=== PATIENT | female | born 1990 | race Caucasian/White ===

== ENCOUNTER 2018-06-20 10:45 | Emergency (ER) | payer BC ==
[2018-06-20 11:59] VITALS: BP 126/61
--- NOTE | 2018-06-20 12:11 | UC ---
Knee Pain HPI - HPI Summary HPI Summary: right knee pain x 3 days injury to right knee as she was sliding to the base heard a loud pop + pain and swelling, difficulty walking - History of Current Complaint Chief Complaint: UCTrauma Stated Complaint: RIGHT KNEE COMPLAINT Time Seen by Provider: 06/20/18 12:00 Hx Obtained From: Patient Hx Last Menstrual Period: PCOS, no menses - followed OBGYN ?: No Onset/Duration: Sudden Onset, Lasting Days - 3, Still Present Severity Initially: Severe Severity Currently: Moderate Pain Intensity: 0 Character: Aching Aggravating Factor(s): Movement, Weight Bearing Alleviating Factor(s): Nothing Associated Signs And Symptoms: Positive: Swelling, Weakness. Negative: Redness , Bruising, Fever, Numbness, Tingling Able to Bear Weight: Yes - Allergies/Home Medications Allergies/Adverse Reactions: Allergies Allergy/AdvReac Type Severity Reaction Status Date / Time No Known Allergies Allergy Verified 06/20/18 11:59 Home Medications: Home Medications NK [No Home Medications Reported] 06/20/18 [History Confirmed 06/20/18] PMH/Surg Hx/FS Hx/Imm Hx Previously Healthy: Yes - Surgical History Surgical History: Yes Surgery Procedure, Year, and Place: bladder sling - Family History Known Family History: Negative: Diabetes - Social History Alcohol Use: Occasionally Substance Use Type: None Smoking Status (MU): Never Smoked Tobacco Review of Systems Constitutional: Negative Skin: Negative Eyes: Negative ENT: Negative Respiratory: Negative Cardiovascular: Negative Is Patient Immunocompromised?: No All Other Systems Reviewed And Are Negative: Yes Physical Exam Triage Information Reviewed: Yes Appearance: Well-Appearing, No Pain Distress, Well-Nourished Vital Signs: Initial Vital Signs Temp 97.6 F 06/20/18 11:54 Pulse 75 06/20/18 11:54 Resp 18 06/20/18 11:54 BP 126/61 06/20/18 11:54 Pulse Ox 100 06/20/18 11:54 Vital Signs Reviewed: Yes Eye Exam: Normal Eyes: Positive: Conjunctiva Clear ENT: Positive: Normal ENT inspection, Hearing grossly normal, Pharynx normal, Pharyngeal erythema Neck exam: Normal Neck: Positive: Supple, Nontender, No Lymphadenopathy Respiratory: Positive: Chest non-tender, Lungs clear, Normal breath sounds Cardiovascular: Positive: RRR, No Murmur, Pulses Normal Musculoskeletal: Positive: Other: - right knee: + swelling, + effusion , diffuse tenderness . limited ROM on flexion and extension Diagnostics - Laboratory Diagnostic Studies Completed/Ordered: right knee xray : IMPRESSION: LARGE EFFUSION. NO ACUTE OSSEOUS INJURY. IF SYMPTOMS PERSIST, RECOMMEND REPEAT IMAGING. Knee Pain Course/Dx - Differential Dx/Diagnosis Differential Diagnosis/HQI/PQRI: Internal Derangement Of Knee Provider Diagnoses: right knee pain. right knee effusion Discharge - Sign-Out/Discharge Documenting (check all that apply): Patient Departure All imaging exams completed and their final reports reviewed: Yes - Discharge Plan Condition: Stable Disposition: HOME Patient Education Materials: Swollen Knee Joint (ED) Referrals: Kathrine Key NP [Primary Care Provider] - Alex Nicholas MD [Medical Doctor] - As Soon As Possible - Billing Disposition and Condition Condition: STABLE Disposition: Home
--- NOTE | 2018-06-20 12:34 | RAD ---
HISTORY: right knee injury COMPARISONS: None VIEWS: 4 , Frontal, lateral, axial, and oblique views of the right knee FINDINGS: BONE DENSITY: Normal. BONES: There is no displaced fracture. JOINTS: There is no arthropathy. There is a large suprapatellar joint effusion without lipohemarthrosis. ALIGNMENT: There is no dislocation. SOFT TISSUES: Unremarkable. OTHER FINDINGS: None. IMPRESSION: LARGE EFFUSION. NO ACUTE OSSEOUS INJURY. IF SYMPTOMS PERSIST, RECOMMEND REPEAT IMAGING.
== END 2018-06-20 12:43 | disposition home or self-care (01) ==
LOC: UCCORT 10:45
DX: M25.561 Pain in right knee (principal); M25.461 Effusion, right knee
CPT/HCPCS: 99201; G0463

== ENCOUNTER 2018-08-07 06:15 | Day surgery (SDC) | payer BC ==
--- NOTE | 2018-08-04 19:10 | HP ---
PREOPERATIVE HISTORY AND PHYSICAL: DATE OF ADMISSION/SURGERY: 08/07/18 [facility] ATTENDING SURGEON: Dr. Joann Baker.* (DICTATED BY NANCY CASON) PROCEDURE: Right knee arthroscopy, anterior cruciate ligament reconstruction with possible allograft. CHIEF COMPLAINT: Right knee. HISTORY OF PRESENT ILLNESS: Page is a 28-year-old female, who presents to the clinic for followup of right knee pain and instability due to an ACL injury. She has failed conservative measures and agreed to undergo right knee arthroscopy, anterior cruciate ligament reconstruction with possible allograft with Dr. Baker on 08/07/18. PAST MEDICAL HISTORY: Possible blood clots in her stomach 5 years ago, she was put on blood thinners for and no history of DVT or PE. She does have history of PCOS. PAST SURGICAL HISTORY: Incontinence surgery in 2008, wisdom teeth surgery in 2009. The patient denies prior complications with anesthesia. MEDICATIONS: No active medications. ALLERGIES: No known drug allergies. FAMILY HISTORY: Positive for heart disease and hypertension as well as cancer. Denies family history of DVT or PE. SOCIAL HISTORY: She lives with her spouse. She is self-employed. She drinks occasional alcohol. She denies tobacco use. She exercises occasionally. She plays softball. She is right-hand dominant. REVIEW OF SYSTEMS: A 14-point review of systems was reviewed with the patient. Positive for current complaint, otherwise negative. Denies fever, chills, chest pain, shortness of breath, history of bleeding disorder, history of DVT or PE. PHYSICAL EXAMINATION GENERAL: A 28-year-old well-developed, well-nourished female, in no acute distress. Alert and oriented x3. Appropriate mood and affect. Appropriate balance and coordination of the lower extremities. VITAL SIGNS: Height 64, weight 142, blood pressure 120/62, respiratory rate 18 , BMI 24.4. HEENT: Normocephalic, atraumatic. PERRLA. Throat clear. NECK: Supple. PULMONARY: Lungs are conservative treatment bilaterally. No wheezing, rhonchi , or rales. CARDIO: Regular rate and rhythm. S1, S2. No murmurs, gallops, or rubs. No edema. ABDOMEN: Positive bowel sounds. Soft, nontender. NEURO: Alert and oriented x3. Cranial nerves grossly intact. Sensation intact to light touch. MUSCULOSKELETAL: Right lower extremity: Skin is intact. No warmth or erythema. Range of motion 0 to 130. Stable to varus and valgus stress. 2B Don. Negative posterior drawer. Calf soft, nontender. +5/5 strength to ankle dorsiflexion and plantarflexion. +2 DP pulse. Sensation intact to light touch distally. DIAGNOSTIC STUDIES: MRI reviewed, grade 3 ACL rupture. No obvious meniscal damage and associated bone bruise. IMPRESSION: Right knee anterior cruciate ligament tear. PLAN: The patient is scheduled to undergo a right knee arthroscopy, anterior cruciate ligament reconstruction with possible allograft. After discussing with the patient, the patient has chosen bone-patellar tendon-bone autograft for her surgery. She will follow up 8 days postop for followup and suture removal. Percocet will be used for postop pain management and Keflex for antibiotic prophylaxis. NANCY CASON [id number]/[facility] [place]: [id number] [place]
[2018-08-07] MEDS ORDERED: Famotidine IV* 10 MG/ML 2 ML (20 mg) ONE (06:16)
[2018-08-07] MEDS ORDERED: Dexamethasone IV* 4 MG/ML 1 ML (4 MG) ONE (06:16)
[2018-08-07] MEDS ORDERED: ceFAZolin 2 GM PREMIX in ORs 2 GM/50 ML BAG IVPB ONE (06:24)
[2018-08-07] MEDS ORDERED: Lidocaine 1% MPF wEPI 200,000* 30 ML SDV ONE (07:07)
[2018-08-07] MEDS ORDERED: ROPIVACAINE 5 MG/ML 30 ML BTL (0.5%) ONE (07:08)
[2018-08-07] MEDS ORDERED: fentaNYL* 50 MCG/ML 2 ML VIAL (100 MCG VIAL) ONE (07:16)
[2018-08-07] MEDS ORDERED: Lidocaine 2% PF * 5 ML VIAL ONE (07:16)
[2018-08-07] MEDS ORDERED: Midazolam* 1 MG/ML 5 ML VIAL (5 MG) ONE (07:16)
[2018-08-07] MEDS ORDERED: Propofol* 10 MG/ML 20 ML BTL IV PUSH ONE (07:19)
[2018-08-07] MEDS ORDERED: Ketorolac INJ* 30 MG/ML 1 ML VIAL ONE (07:40)
[2018-08-07] MEDS ORDERED: oxyCODONE/Acetamin 5/325 MG* TAB PO PRN (08:03)
[2018-08-07] MEDS ORDERED: HYDROcodone/ACETAMIN 5-325 MG* 1 TAB PO PRN (08:03)
[2018-08-07] MEDS ORDERED: fentaNYL* 50 MCG/ML 2 ML VIAL (100 MCG VIAL) IV PRN (08:03)
[2018-08-07] MEDS ORDERED: Scopolamine 1.5 mg* PATCH TRANSDERM PRN (08:03)
[2018-08-07] MEDS ORDERED: Naloxone* 0.4 MG/ML 1 ML VIAL IV PRN (08:03)
[2018-08-07] MEDS ORDERED: DiMENhydriNATE IV* 50 MG/ML VIAL IV PUSH PRN (08:03)
[2018-08-07] MEDS ORDERED: EPHEDrine (Pressors)* 50 MG/ML VIAL ONE (08:21)
[2018-08-07] MEDS ORDERED: Ondansetron INJ* 2 MG/ML VIAL ONE (08:40)
[2018-08-07] MEDS ORDERED: DiMENhydriNATE IV* 50 MG/ML VIAL ONE (10:21)
[2018-08-07] MEDS ORDERED: Scopolamine 1.5 mg* PATCH ONE (10:28)
[2018-08-07 11:11] VITALS: BP 107/67
--- NOTE | 2018-08-08 03:35 | OP ---
DATE OF OPERATION: 08/07/18 - [facility] DATE OF : 88 ATTENDING SURGEON: Joann Baker MD BIOLOGY TEACHER: NANCY Alvarado. An service assistant was needed for the entirety of the case to help with positioning and retraction and was utilized throughout all portions of the case. ANESTHESIOLOGIST: Dr. Cross. ANESTHESIA: General. PRE-OP DIAGNOSIS: Right knee grade 3 ACL rupture. POST-OP DIAGNOSIS: Right knee grade 3 ACL rupture. COMPLICATIONS: None. ESTIMATED BLOOD LOSS: Minimal. TOURNIQUET TIME: 25 minutes at 250 mmHg. IMPLANTS USED: One Caal and Nephew Soft Silk 7 x 20 and one 9 x 25. INDICATIONS: Page Marr is a 28-year-old female who ruptured her ACL around 06/17/18 when she was playing softball. She sustained immediate pain. She underwent physical therapy, debated her options, and considered surgical treatment. Risks and benefits were discussed at length included but not limited to bleeding; infection; damage to nerves, vessels, surrounding structures; wound nonhealing; persistent pain; need for surgery; scaring; stiffness; incomplete release of symptoms; and risks of anesthesia. DESCRIPTION OF PROCEDURE: The patient was greeted in the preoperative area by the attending surgeon. Correct extremity was marked, consent was confirmed. The patient was brought back to the operating suite, was placed in a supine position on the operating room table. She then underwent general anesthesia after which she was appropriately positioned on the bed. A nonsterile tourniquet was placed high on the right thigh. The lateral post was positioned. A bump was placed to keep the knee at 90 degrees. The right leg was then prepped and draped in the usual sterile fashion beginning chlorhexidine soap, scrub, and alcohol wipe, and a final prep with ChloraPrep. After appropriate surgical pause indicating site, side, procedure, and administration of antibiotics, the knee was intra-articularly injected with 1% lidocaine with epi. The Esmarch was used to exsanguinate the limb and the tourniquet inflated to 250 mmHg. A 15-blade was used to make an incision in line with the patellar tendon. Structures were carefully dissected to exposed the peritenon, which was protected for a later closure. The tendon was visualized, found to be about 30 to 31 mm in width. The center 10 mm was harvested with a 10 blade. The dissection was taken proximally for a 9 x 23 mm bone block and a 10 x 30 mm distal tibial bone block. This was harvested using sagittal saw and osteotomes. The graft was then prepared on the back table by the service assistant. The tendon was closed in interrupted fashion with Vicryl sutures. The tourniquet was deflated. At this point attention was directed to arthroscopy. The lateral portal was made through the capsule using an 11 blade. The scope was brought through the joint. Anteromedial portal was made in a similar fashion. Shaver was used to debride the abundant fat pad back. The ACL was found to have grade-3 rupture. Part of the posterolateral bundle was still intact, but the anterolateral vast majority was scarred to the the PCL. Jovany and biters were used to debride the excess stump back and to prepare the lateral wall. Diagnostic arthroscopy was then done. There were grade 0 to 1 changes at the patellofemoral joint. No loose bodies in either gutters. The medial compartment had small area of grade 1 changes with no large loose flaps. The medial meniscus was intact. The medial plateau had grade 0 changes. The lateral compartment was examined and the lateral femoral condyle, lateral plateau had grade 0 changes. The lateral meniscus was intact. There was evidence of a previous tear that had healed. At this point, attention was directed back to the ACL. The femoral tunnel was then provisionally marked with a starting awl. This was checked by changing the portals from the lateral to the medial portal. Once this was found to be acceptable, attention was directed to the tibial footprint. The tip-to-tip guide was set at about 52 degrees. Based on the reference point from the ACL as well as the anteromedial and anterolateral meniscal horns, the center of the footprint was identified and once the guidewire was placed in the appropriate position, this was overdrilled with a size 10 mm full bore reamer. All excess bone was saved for bone graft the defects. The tunnel was then rasped, a carrot was placed to prevent fluid egress. Shaver was used to remove any soft tissue from the tunnel. At this point, attention was then directed to the femoral tunnel with the Caal and Nephew straight guide placed in the center of the footprint. The knee was then hyperflexed. A Beath pin was then placed in the center of the footprint, passed through the lateral cortex, up to the IT band, and the skin. This was then overdrilled with a size 9 mm low-profile reamer, excess bone and debris was removed to a depth of about 25 mm. Once these bone and debris were removed, the tunnel was visualized, found to have a good back wall and appropriately positioned. The tunnel was then notched, a #2 Ethibond was placed to the eyelid of the Beath pin and passed through the lateral thigh as well as antegrade through the tibial tunnel. At this point, the graft was brought back to the operating room table, this was then passed under direct and arthroscopic visualization. This was found to be well seated in the tunnel. This was then secured with a size 7 x 20 mm soft Silk Screw. The knee was then taken to full extension, found to not impinge anteriorly. The screw placement had an excellent purchase. The knee was then cycled approximately 15 times and the scope was brought back to the joint and the graft was found to be appropriately placed. The knee was then placed to about 20 degrees of flexion with tension on the tibial sutures and posterior drawer. A size 9 x 25 screw was then placed with excellent purchase. The knee was then taken through range of motion. The Don was assessed and found to be stable. The scope was brought back to the joint and the graft was found to be in good position. Final images were obtained, the wounds were then copiously irrigated. Any excess bone was then placed in the patellar defect and tibial defect and oversewn with 0 Vicryl. The peritenon was closed with 2- 0 Vicryl and the skin was closed in layers with 2-0 Vicryl and 3-0 Monocryl. Sterile dressings were applied. The knee was intra-articularly and superficially injected with 0.2% Ropivacaine, sterile dressings were applied, Cryo/Cuff and a hinge knee brace were applied. She was awoken from anesthesia and transferred to PACU in stable condition. POSTOPERATIVE PLAN: She will be weightbearing as tolerated. Discharged on pain medications and antibiotics. DVT prophylaxis considered, but deferred due to no previous personal or family history. I will see the patient back in 6 to 8 days. [id number]/[facility] #: [id number] SCARLETT
[2018-08-10] MEDS ORDERED: Scopolamine PATCH Remove* 1 NOTE MISC PATCH OFF ONE (08:04)
== END 2018-08-07 10:54 | disposition home or self-care (01) ==
LOC: OREAST 06:15
PROVIDERS: ATTEND Orthopaedic Surgery
DX: S83.511A Sprain of anterior cruciate ligament of right knee, initial encounter (principal); X58.XXXA Exposure to other specified factors, initial encounter; Y93.64 Activity, baseball; Y92.320 Baseball field as the place of occurrence of the external cause
CPT/HCPCS: 81025; 88304; A9270-GY; C1713; J0690; J1100; J1240; J1885; J2001; J2250; J2405; J2704; J2795; J3010

== ENCOUNTER 2018-10-16 08:53 | Day surgery (SDC) | payer BC ==
--- NOTE | 2018-10-04 17:58 | HP ---
PREOPERATIVE HISTORY AND PHYSICAL: DATE OF ADMISSION/SURGERY: 10/16/18 [facility] DATE OF OFFICE VISIT: 10/03/18 ATTENDING SURGEON: Joann Baker MD * (DICTATED BY NANCY CASON) PROCEDURE: Right knee arthroscopic surgery, lysis of adhesions, manipulation under anesthesia. CHIEF COMPLAINT: Right knee pain. HISTORY OF PRESENT ILLNESS: Page is a 28-year-old female who presents to the clinic 8 weeks status post ACL reconstruction. She complains of stiffness of the knee and has failed conservative measures to include physical therapy and has therefore agreed to undergo a right knee arthroscopic surgery, lysis of adhesions, manipulation under anesthesia with Dr. Baker on 10/16/18. PAST MEDICAL HISTORY: Possible clot in her stomach 5 years ago. She is still on blood thinners for it. No history of DVT or PE and a history of PCOS. PAST SURGICAL HISTORY: 1. Incontinence surgery in 2008. 2. [place] teeth surgery in 2009. 3. Right knee ACL reconstruction. The patient denies prior complications with anesthesia. MEDICATIONS: No active medications. ALLERGIES: No known drug allergies. FAMILY HISTORY: Positive for heart disease, hypertension, and cancer. Denies family history of DVT or PE. SOCIAL HISTORY: She lives with her spouse. She is self-employed. She drinks occasional alcohol. She denies tobacco use. She exercises occasionally. She plays softball. She is right-hand dominant. REVIEW OF SYSTEMS: A 14-point review of systems was reviewed with the patient. Positive for current complaint, otherwise negative. Denies fever, chills, chest pain, shortness of breath, history of bleeding disorder, history of DVT or PE. PHYSICAL EXAMINATION GENERAL: A 28-year-old well-developed, well-nourished female, in no acute distress. VITAL SIGNS: Height 64, weight 141, pulse 72, blood pressure 120/84, respiratory rate 18, temperature 98.0, BMI 24.2. HEENT: Normocephalic, atraumatic. PERRLA. Throat: Clear. NECK: Supple. PULMONARY: Lungs are clear to auscultation bilaterally. No wheezing, rhonchi, or rales. CARDIO: Regular rate and rhythm. S1, S2. No murmurs, gallops, or rubs. No edema. ABDOMEN: Positive bowel sounds, soft, nontender. NEURO: Alert and oriented x3. Cranial nerves grossly intact. Sensation is intact to light touch. MUSCULOSKELETAL: Right lower extremity: Well-healed surgical incision. No warmth or erythema. Range of motion is 0 to 140. Stable to varus and valgus stress. Stable Don. Negative posterior drawer. Calf soft, nontender. +2 DP pulse. Sensation intact to light touch distally. IMPRESSION: Right knee ankylosis. PLAN: The patient is scheduled to undergo a right knee arthroscopic surgery, lysis of adhesions, and manipulation under anesthesia with Dr. Baker on . Percocet will be used for postoperative pain management and Keflex for antibiotic prophylaxis. She will follow up 15 days postop. NANCY CASON [id number]/[facility] #: [id number] MTDD
[~2018-10-16 08:53] MED LIST: Buffered Lidocaine 0.9% SYRIN* 5 ML/SYR SYRINGE INTRADERM ONE; Famotidine IV* 10 MG/ML 2 ML (20 mg) IV ONE; Lactated Ringers 1000 ML Bag* 1,000 ML IV SCH; Midazolam* 1 MG/ML 5 ML VIAL (5 MG) ONE; fentaNYL* 50 MCG/ML 2 ML VIAL (100 MCG VIAL) ONE
[2018-10-16] MEDS ORDERED: ceFAZolin 2 GM PREMIX in ORs 2 GM/50 ML BAG IVPB ONE (09:19)
[2018-10-16] MEDS ORDERED: Famotidine IV* 10 MG/ML 2 ML (20 mg) ONE (09:19)
[2018-10-16] MEDS ORDERED: Acetaminophen TAB* 325 MG PO PRN (09:31)
[2018-10-16] MEDS ORDERED: oxyCODONE TAB* 5 MG TAB PO PRN (09:31)
[2018-10-16] MEDS ORDERED: Naloxone* 0.4 MG/ML 1 ML VIAL IV PRN (09:31)
[2018-10-16] MEDS ORDERED: DiMENhydriNATE IV* 50 MG/ML VIAL IV PUSH PRN (09:31)
[2018-10-16] MEDS ORDERED: Lidocaine 1% MPF wEPI 200,000* 30 ML SDV ONE (09:32)
[2018-10-16] MEDS ORDERED: ROPIVACAINE 5 MG/ML 30 ML BTL (0.5%) ONE (09:32)
[2018-10-16] MEDS ORDERED: Scopolamine 1.5 mg* PATCH ONE (09:40)
[2018-10-16] MEDS ORDERED: Scopolamine 1.5 mg* PATCH TRANSDERM SCH (10:00)
[2018-10-16] MEDS ORDERED: DiMENhydriNATE IV* 50 MG/ML VIAL ONE (10:15)
[2018-10-16] MEDS ORDERED: Ondansetron INJ* 2 MG/ML VIAL ONE (10:15)
[2018-10-16] MEDS ORDERED: Lidocaine 2% PF * 5 ML VIAL ONE (10:15)
[2018-10-16] MEDS ORDERED: Dexamethasone IV* 4 MG/ML 1 ML (4 MG) ONE (10:15)
[2018-10-16] MEDS ORDERED: Propofol* 10 MG/ML 20 ML BTL ONE (10:15)
[2018-10-16] MEDS ORDERED: Ketorolac INJ* 30 MG/ML 1 ML VIAL ONE (10:15)
[2018-10-16] MEDS ORDERED: oxyCODONE/Acetamin 5/325 MG* TAB ONE (11:17)
[2018-10-16] MEDS ORDERED: HYDROmorphone INJ* 0.5 MG/0.5 ML SYRINGE ONE (11:22)
[2018-10-16] MEDS: HYDROmorphone INJ1* 1 MG/ML SYRINGE IV PRN ×2 (11:29→11:34)
[2018-10-16 12:15] VITALS: BP 116/74
--- NOTE | 2018-10-17 07:48 | OP ---
DATE OF OPERATION: 10/16/18 [facility] DATE OF : 88 SURGEON: Joann Baker MD INTERNAL CONTROLS ANALYST: None available. PRE-OP DIAGNOSIS: Ankylosis, status post anterior cruciate ligament reconstruction. POST-OP DIAGNOSIS: Ankylosis, status post anterior cruciate ligament reconstruction. OPERATIVE PROCEDURE: Right knee arthroscopy with lysis of adhesion and manipulation under anesthesia. COMPLICATIONS: None. ESTIMATED BLOOD LOSS: Minimal. INDICATIONS: Page Marr is a 28-year-old female who underwent ACL reconstruction on 08/07/18. She did have a delay in getting into therapy, but then never progressed in her motion. We tried physical therapy, antiinflammatories, Medrol Dosepak. She continues to struggle. Her motion at about 10 to 30 degrees. After extensive discussion of the risks, benefits of the surgery, she wants to proceed with surgical treatment. Risks and benefits were discussed including but not limited to bleeding, infection, damage to nerves, vessels, surrounding structures, wound nonhealing, persistent pain, need for further surgery, scarring, stiffness, incomplete relief of symptoms and risks of anesthesia. DESCRIPTION OF PROCEDURE: The patient was greeted in the preoperative area by the attending surgeon. Correct extremity was marked and consent was confirmed. The patient was then brought back to the operating suite where she was placed in a supine position on the operating table. She then underwent general anesthesia and LMA intubation, after which she was appropriately positioned on the bed, lateral post was positioned. An unsterile tourniquet was placed high on the proximal thigh. The right leg was then prepped and draped in the usual sterile fashion, beginning with chlorhexidine soap scrub and alcohol wipe and a final prep with ChloraPrep. After appropriate surgical pause indicating side, site, procedure, and administration of antibiotics, the knee was intra-articularly injected with 1% lidocaine with epi. The anterolateral port was then made sharply with an 11- blade. The scope was brought into the joint. The anteromedial portal was then made in an outside-in fashion. There was significant abundant scar that was present all the way from the notch to the patellar tendon. There was scar tissue to all about the patella itself. Her preoperative range of motion is about 5 degrees to about 35 degrees. Stable Don, stable to varus valgus stress. With the scope in place, the biter was used to release the bands of the thick fibrous tissue that was present. The shaver was used to debride it back. Electrocautery device was used also to remove that and to maintain hemostasis at all time. First, attention was directed to the anterior, medial, lateral aspect, focus on finding healthy tissue underneath the scar. Care was taken to not damage patellar tendon as well as not damage the meniscus anteriorly. Once the bad and scar tissue released medially, laterally and anteriorly, the knee was placed in extension and attention was directed to around the patella. There was a thick band of scar circumferentially around the patella and this was all released with electrocautery device to allow for better patella mobilization. There is some mild cartilage debris, chondral abrasion from the scar tissue superiorly, anteromedially. Once this was done, the gutters were examined and found to be intact. The knee was then placed in about 70 degrees as much as it could bend. There was abundant scar tissue in the notch that was obscuring the ACL. It was carefully delved out and we cared to protect the ACL as well as the PCL. Once the scar was removed, the ACL was measured and was found to be intact in good position and now healing quite well. At this point, all fluid and debris was removed and the manipulation began. With the scope outside, the knee was then carefully manipulated to release the remaining adhesions and lysis. I was able to extend her fully to 0 degrees and flex her to 135 degrees. Imaging were obtained to confirm this. The Don's was tested again and found to be stable. The scope was brought back to the joint to make sure there is no other loose debris or tissue that need to be removed and maintain hemostasis. Final images were obtained. The wounds were then copiously irrigated with sterile saline. The portals were closed with 3-0 nylon. Sterile dressings were applied. The knee was intra-articularly injected with 0.25% ropivacaine. Sterile dressings were applied. Cryo/Cuff as well as sling were applied. She was awoken from anesthesia. She was placed back into a brace and discharged to the PACU in stable condition. POSTOPERATIVE PLAN: She will be weightbearing as tolerated in the brace. Range of motion to begin right away. I will see the patient back in about a week to 10 days. DVT prophylaxis was considered but deferred due to no previous family or personal history. [id number]/[facility] #: [id number] [place]AR[place]TT
== END 2018-10-16 12:06 | disposition home or self-care (01) ==
LOC: OREAST 08:53
PROVIDERS: ATTEND Orthopaedic Surgery
DX: M24.661 Ankylosis, right knee (principal)
CPT/HCPCS: 81025; A9270-GY; J0690; J1100; J1170; J1240; J1885; J2001; J2250; J2405; J2704; J2795; J3010